=== PATIENT | male | born 1935 | race Caucasian/White ===

== ENCOUNTER 2023-10-13 12:25 | Outpatient (AMB) | payer MEDICARE, SELFPAY ==
--- OUTSIDE RECORDS SUMMARY | 2023-10-13 12:26 | XMS_ITS | Patient Health Record ---
Author Name Unknown [facility] Address [address] [place] [address] Care Team Providers Care Activities Therapist Name Role Phone Lashay Porter Primary Care Provider Fernie Maurer Unavailable [phone] ALLERGIES No Known Allergies REASON FOR REFERRAL No Information MEDICATIONS Medication SIG (Take, Route, Frequency, Duration) Notes Start Date End Date Status Famotidine Active Flomax Active HYDROcodone-Acetaminophen Active hydroCHLOROthiazide Active Omeprazole Active Magnesium Oxide Acti ve rOPINIRole HCl Activ e Atenolol 50 MG 1 tablet Orally Once a day for 30 day(s) Active Clopidogrel Bisulfate Not-Taking Acyclovir Not-Taking Aspirin Active Atorvastatin Calcium Active Potassium Chloride ER Not-Taking IMMUNIZATIONS Vaccine Route Administration Date Status Comme nts COVID-19 Pfizer BioNTech Vaccine Unknown 08/17/2021 Administered 1st 12/13/20 2nd 01/03/21 Influenza Unknown 08/09/2022 Administered SOCIAL HISTORY Tobacco Use: Social History Observation Description Date Details (start date - stop date) Former Smoker NA - NA Sex Assigned At : Social History Observation Description Sex Assigned At Unknown Tobacco Use/Smoking Question Answer Notes Are you a: former smoker Additional Findings: Tobacco Non-User Current no n-smoker Alcohol Screen Question Answer Notes Did you have a drink containing alcohol in the p ast year? No Points 0 Interpretation Negative Tobacco use other than smoking: Question Answer Notes Are you an other tobacco user? No PROBLEMS Problem Type ICD Code Onset Dates Problem Status W/U Status Risk SNOMED Code Notes Problem Atherosclerosis of [place] artery of both lower extremities, with unspecified presence of clinical manifestation (I70.203) Active confirmed [id number] VITAL SIGNS Blood pressure diastolic 80 mm Hg 08/25/2023 Height 5 ft 3 in in 08/25/2023 Blood pressure systolic 128 mm Hg 08/25/2023 Weight 168 lbs 08/25/2023 BMI 29.76 kg/m2 08/25/2023 PROCEDURES Procedure Date Ordered Date Performed Result Body Sit e 58444-XWVWYLN NAIL, 6 OR MORE 10/14/2022 N/A 30828-USJI SKIN LESIONS, 2 TO 4 10/14/2022 N/A 06600-RRXEDGX NAIL, 6 OR MORE 12/30/2022 N/A 47879-MTPV SKIN LESIONS, 2 TO 4 12/30/2022 N/A 88326-YHHZBVR NAIL, 6 OR MORE 03/24/2023 N/A 84906-FYYX SKIN LESIONS, 2 TO 4 03/24/2023 N/A 26578-AUHGLTK NAIL, 6 OR MORE 06/16/2023 N/A 34379-SDIP SKIN LESIONS, 2 TO 4 06/16/2023 N/A 06883-YVZNVIC NAIL, 6 OR MORE 08/25/2023 N/A 70026-ZGZD SKIN LESIONS, 2 TO 4 08/25/2023 N/A Encounters Encounter Location Date Provider Diagnosis [address] [address] 10/14/2022 Fernie Rice Atherosclerosis of [place] artery of both lower extremities, with unspecified presence of clinical manifestation I70.203 ; Tinea unguium B35.1 ; Pain in right toe(s) M79.674 and Pain in left toe(s) M79.[address] [address] 12/30/2022 Fernie Dwayne Atherosclerosis of y[place] artery of both lower extremities, with unspecified presence of clinical manifestation I70.203 ; Tinea unguium B35.1 ; Pain in right toe(s) M79.674 and Pain in left toe(s) M79.[address] [address] 03/24/2023 Fernie Dwayne Atherosclerosis of y[place] artery of both lower extremities, with unspecified presence of clinical manifestation I70.203 ; Tinea unguium B35.1 ; Pain in right toe(s) M79.674 and Pain in left toe(s) M79.[address] [address] 06/16/2023 Fernie Rice Atherosclerosis of y[place] artery of both lower extremities, with unspecified presence of clinical manifestation I70.203 ; Tinea unguium B35.1 ; Pain in right toe(s) M79.674 and Pain in left toe(s) M79.[address] [address] 08/25/2023 Fernie Kowalskiunier Atherosclerosis of yankton artery of both lower extremities, with unspecified presence of clinical manifestation I70.203 ; Tinea unguium B35.1 ; Pain in right toe(s) M79.674 and Pain in left toe(s) M79.675 ASSESSMENTS Encounter Date Diagnosis Assessment Notes Treatment Notes Treatment Clinical Notes 10/14/2022 Tinea unguium (ICD-1 0 - B35.1) 10/14/2022 Atherosclerosis of [place] artery of both lower extremities, with unspecified presence of clinical manifestation (ICD-10 - I70.203) 12/30/2022 Tinea unguium (ICD-1 0 - B35.1) 12/30/2022 Atherosclerosis of [place] artery of both lower extremities, with unspecified presence of clinical manifestation (ICD-10 - I70.203) 03/24/2023 Tinea unguium (ICD-1 0 - B35.1) 03/24/2023 Atherosclerosis of [place] artery of both lower extremities, with unspecified presence of clinical manifestation (ICD-10 - I70.203) 06/16/2023 Tinea unguium (ICD-1 0 - B35.1) 06/16/2023 Atherosclerosis of [place] artery of both lower extremities, with unspecified presence of clinical manifestation (ICD-10 - I70.203) 08/25/2023 Tinea unguium (ICD-1 0 - B35.1) 08/25/2023 Atherosclerosis of [place] artery of both lower extremities, with unspecified presence of clinical manifestation (ICD-10 - I70.203) 08/25/2023 Pain in right toe(s) (ICD-10 - M79.674) 03/24/2023 Pain in right toe(s) (ICD-10 - M79.674) 06/16/2023 Pain in right toe(s) (ICD-10 - M79.674) 10/14/2022 Pain in right toe(s) (ICD-10 - M79.674) 12/30/2022 Pain in right toe(s) (ICD-10 - M79.674) 10/14/2022 Pain in left toe(s) (ICD-10 - M79.675) 12/30/2022 Pain in left toe(s) (ICD-10 - M79.675) 06/16/2023 Pain in left toe(s) (ICD-10 - M79.675) 03/24/2023 Pain in left toe(s) (ICD-10 - M79.675) 08/25/2023 Pain in left toe(s) (ICD-10 - M79.675) PLAN OF TREATMENT Pending Test Test Name Order Date 16393-JFUKEZN NAIL, 6 OR MORE 08/09/2011 61110-XUHJVYJ NAIL, 6 OR MORE 11/15/2011 94934-BFMXNZV NAIL, 6 OR MORE 02/14/2012 76798-USTAVKN NAIL, 6 OR MORE 04/17/2012 76298-PJYENOE NAIL, 6 OR MORE 07/17/2012 05963-HSOPUJG NAIL, 6 OR MORE 09/25/2012 60847-OMTUDXX NAIL, 6 OR MORE 12/11/2012 93505-OMQGSSX NAIL, 6 OR MORE 03/15/2013 53425-MMGIHIA NAIL, 6 OR MORE 07/26/2013 84188-GYWNFTT NAIL, 6 OR MORE 01/31/2014 43968-OGMYJMF NAIL, 6 OR MORE 04/22/2014 18210-WPBUMLW NAIL, 6 OR MORE 07/25/2014 91017-FIXHIHD NAIL, 6 OR MORE 10/18/2013 00276-OQNLHQE NAIL, 6 OR MORE 10/24/2014 35904-JKECHPD NAIL, 6 OR MORE 01/23/2015 59069-NJZSJPW NAIL, 6 OR MORE 05/01/2015 57728-LKRYAJJ NAIL, 6 OR MORE 07/31/2015 26995-ZWWQAHA NAIL, 6 OR MORE 11/13/2015 44918-VTWYDOL NAIL, 6 OR MORE 02/12/2016 26566-NUXMJEO NAIL, 6 OR MORE 05/13/2016 79363-PFBMJMU NAIL, 6 OR MORE 07/26/2016 73037-WGYCFBU NAIL, 6 OR MORE 10/04/2016 06019-MRRDEQE NAIL, 6 OR MORE 12/13/2016 97283-NLXQBZR NAIL, 6 OR MORE 02/21/2017 57288-TELQPYU NAIL, 6 OR MORE 05/16/2017 23979-GCLLSWV NAIL, 6 OR MORE 07/18/2017 21898-JLKKDZB NAIL, 6 OR MORE 10/10/2017 21490-MBIMFAQ NAIL, 6 OR MORE 12/19/2017 66267-GIJWQAR NAIL, 6 OR MORE 02/23/2018 26284-ZJFCXUF NAIL, 6 OR MORE 04/27/2018 66065-BDTGGYX NAIL, 6 OR MORE 07/20/2018 42118-APMAFWS NAIL, 6 OR MORE 10/16/2018 09543-WKUVMTI NAIL, 6 OR MORE 05/24/2019 16553-ESSATET NAIL, 6 OR MORE 11/20/2020 59893-LRSQGDZ NAIL, 6 OR MORE 02/02/2021 83121-PKRBGAS NAIL, 6 OR MORE 04/13/2021 98857-FRURFEF NAIL, 6 OR MORE 06/22/2021 79286-WPYOIUC NAIL, 6 OR MORE 09/07/2021 42073-XPHZYBO NAIL, 6 OR MORE 01/28/2022 41314-MDAXALW NAIL, 6 OR MORE 05/17/2022 33219-FRNTNAH NAIL, 6 OR MORE 08/02/2022 08485-XMJHWRC NAIL, 6 OR MORE 10/14/2022 69274-QFHZNJV NAIL, 6 OR MORE 12/30/2022 27512-AQCWAGQ NAIL, 6 OR MORE 03/24/2023 46695-DUUIFVV NAIL, 6 OR MORE 06/16/2023 03854-YJMHAXI NAIL, 6 OR MORE 08/25/2023 24282-Tklkqtkn Plate 08/09/2011 25711-TZGV SKIN LESIONS, 2 TO 4 05/16/20 00976-PBEF SKIN LESIONS, 2 TO 4 07/18/20 17 69758-XFHU SKIN LESIONS, 2 TO 4 12/19/19 18 11273-JJVP SKIN LESIONS, 2 TO 4 10/10/20 17 79660-GMDG SKIN LESIONS, 2 TO 4 10/16/20 18 87710-TUOB SKIN LESIONS, 2 TO 4 07/20/20 18 99191-CAKV SKIN LESIONS, 2 TO 4 04/27/20 18 12227-WDOF SKIN LESIONS, 2 TO 4 02/24/20 18 44712-NDZY SKIN LESIONS, 2 TO 4 08/25/20 23 36902-VFSP SKIN LESIONS, 2 TO 4 06/16/20 23 77494-DHAL SKIN LESIONS, 2 TO 4 03/24/20 23 55181-LPZD SKIN LESIONS, 2 TO 4 12/30/19 23 12951-XCEK SKIN LESIONS, 2 TO 4 10/14/20 22 88202-ZFIY SKIN LESIONS, 2 TO 4 08/02/20 22 25783-PEQG SKIN LESIONS, 2 TO 4 05/17/20 38508-LCHY SKIN LESIONS, 2 TO 4 01/29/20 22 91879-UOON SKIN LESIONS, 2 TO 4 09/07/20 21 30534-KUPC SKIN LESIONS, 2 TO 4 06/22/20 21 42272-IIXY SKIN LESIONS, 2 TO 4 04/13/20 21 61151-LQFF SKIN LESIONS, 2 TO 4 02/03/20 21 04112-RLER SKIN LESIONS, 2 TO 4 11/20/19 21 59243-RYJU SKIN LESIONS, 2 TO 4 05/24/20 19 17018-MIGJ SKIN LESION 02/21/2017 Next Appt Details Provider Name:Fernie Rice , 11/10/2023 12:45:00 PM, [address] [place], [address], Insurance Providers Payer Name Payer Address Payer Phone Subscriber Number Group Number Insured Name Patient Relationship to Insured Coverage Start Date Coverage End Date Medicare National [employer] [address] [place] [address] [id number] Gray Bunn Self - patient is the insured 1 [employer] [facility] [address] [place] [address] [phone] [id number] Timi richard Gray Self - patient is the insured MEDICAL (GENERAL) HISTORY Medical History History ICD Code hypertension reflux CVA OA knees Back Melanoma Surgical History Surgery Date(Month/Year) lung surgery 1982 right shoulder surgery 2003 left shoulder surgery 2005 cataract removal both eyes 04/2015 knee surgery, left 11/28/17 Hospitalization History Reason Date(Month/Year) Patient went to [facility] ER after a fall of f the ladder. 09/2015 [facility]- 09/07 stay Blood flow issue in legs 07/2021 [facility] - legs red, brief stay [facility]- Fell diarrhea/ vomiting at sametime due to dehydration test done sameday stay 2021
--- NOTE | 2023-10-13 13:48 | AM.OFFWIN_ITS ---
Intake Vital Signs 3 10/13/23 13:49 Weight 74.843 kg BP 130/60 Blood Pressure Location Lt brachial Position Sitting Pulse 70 Pulse Source Pulse Oximeter Temp 97.2 F Temp Source Temporal Artery Scan Pulse Oximetry (%) 97 Oxygen Delivery Method Room Air Intake Visit Reasons: EST/left leg infection (lobby) Intake Note: pt is here today for possible lft leg infection started 3 days ago Patient Tobacco Use Status: Never used Tobacco Allergies No Known Allergies [No Known Allergies*] Allergy (Verified 10/13/23 13:54) Do you need a note to return to daycare/school/sports/work: No HPI HPI Comments 2 History of Present Illness0 Details 1403 This is an 88-year-old male presenting for evaluation of rash to left lower extremity, he reports this rash happens from time to time and he needs antibiotics, reports poor circulation to bilateral lower extremities. Left lower extremity is very painful and now somewhat cold. He denies fevers, chills, tingling, chest pain, shortness of breath, nausea, vomiting, joint pain. Physical exam significant for erythematous area up to the knee with overlying coldness to the left lower extremity anterior aspect appears shiny, tenderness overlying. 2+ dorsalis pedis, anterior tibialis pulses to RLE no palpable DP,AT,PT to LLE. Decreased sensation to left lower extremity. Tenderness to palpation to left lower extremity from the knee down. This patient was also evaluated by Dr. Munroe was also unable to palpate pulses to left lower extremity This is likely arterial occlusion versus DVT versus cellulitis. No signs of necrotizing infection, threat to limb Patient will have emergent transfer to [facility]'s Emergency Department and be seen there to rule out arterial occlusion. Expect called in to Dr. Richards [facility] Social History Patient Tobacco Use Status: Never used Tobacco Review of Systems Const Details: Constitutional : No Weight loss, No Fever, No Chills, No Fatigue, No Malaise ENT/Mouth : No sore throat, No Rhinorrhea Eyes: No Eye Pain, No Swelling, No Redness Cardiovascular : No Chest Pain, No SOB, No Dyspnea on Exertion, No Orthopnea, No Edema, No Palpitations Respiratory : No Cough, No Sputum, No Wheezing Gastrointestinal : No Nausea, No Vomiting, No Diarrhea, No Constipation, No abdominal Pain, No Hematochezia, No Melena Genitourinary : No Dysuria, No Urinary Frequency, No Hematuria, Musculoskeletal : No joint pain, No Myalgias, No Joint Swelling Skin : No Skin Lesions, + rash Neuro : No Weakness, No Numbness, No Dizziness, No Headache Psych : No Anxiety/Panic, No Depression All other systems reviewed and are negative All systems reviewed & are unremarkable except as noted in HPI and below Physical Exam Vital Signs: Last Vital Signs Temp 97.2 F 10/13/23 13:49 Pulse 70 10/13/23 13:49 BP 130/60 10/13/23 13:49 Pulse Ox 97 10/13/23 13:49 Oxygen Delivery Method Room Air 10/13/23 13:49 Vital signs stable Appearance: Alert.? Oriented X3.? No acute distress.? Head: Normocephalic, atraumatic, no step-offs or deformities Eyes: Pupils equal, round and reactive to light.? Neck: Normal inspection.? Neck supple.? CVS: Normal heart rate and rhythm.? Pulses normal.? Respiratory: No respiratory distress.? Breath sounds normal.? Abdomen: Soft and nontender.? Skin: erythematous area up to the knee with overlying coldness to the left lower extremity anterior aspect appears shiny, tenderness overlying. 2+ dorsalis pedis, anterior tibialis pulses to RLE no palpable DP,AT,PT to LLE. Decreased sensation to left lower extremity. Tenderness to palpation to left lower extremity from the knee down. Extremities: No lower extremity edema.? 5/5 strength to bilateral upper and lower extremities Neuro: Oriented X 3.? No motor deficit.? No sensory deficit. CN 2-12 intact Assessment & Plan Assessment & Plan (1) Acute pain of left lower extremity: Code(s): M79.605 - Pain in left leg Plan Patient will go with daughter to [facility] ED Coding Level of Care Code Est Pt Level 4 (35643) Diagnoses Acute pain of left lower extremity M79.605
[2023-10-13 13:49] VITALS: BP 130/60; PULSE 70; TEMP 36.2; O2SAT 97
== END 2023-10-13 15:38 | disposition home or self-care (01) ==
PROVIDERS: PCP Internal Medicine; Visit Provider Physician Assistant
DX: M79.605 Pain in left leg (principal)
CPT/HCPCS: 99214

== ENCOUNTER 2023-10-13 14:55 | Emergency (ER) | payer MEDICARE, SELFPAY ==
--- NOTE | ~2023-10-13 | US_ITS ---
EXAMINATION: US-left LOW EXTR ARTERIAL DOP CLINICAL INFORMATION: Pain COMPARISON: None TECHNIQUE: Real-time ultrasound and Doppler techniques (integrating B-mode 2-D vascular images, Doppler spectral analysis and color flow Doppler imaging) were utilized to interrogate the left lower extremity FINDINGS: Left lower extremity: Common femoral artery: 200 cm/sec; biphasic waveform Superficial femoral artery proximal: 146 cm/sec; biphasic waveform Superficial femoral artery mid portion: 78 cm/sec; biphasic waveform Superficial femoral artery distal: 53 cm/sec; biphasic waveform Profunda artery: 176 cm/sec; biphasic waveform Popliteal artery: 55 cm/sec; biphasic waveform Posterior tibial artery: 135 cm/sec; biphasic waveform US/US arterial duplex LE LT IMPRESSION: Mild atherosclerotic disease. No evidence of a hemodynamically significant stenosis in the left common femoral artery, superficial femoral artery, popliteal artery and posterior tibial artery by waveform and velocity criteria. There is flow reversal in the anterior tibial artery and dorsalis pedis which may suggest collateral flow to these vessels.
[2023-10-13 15:05] VITALS: BP 207/75; PULSE 60; RESP 16; TEMP 37.1; O2SAT 98; BMI 29.2
--- NOTE | 2023-10-13 15:05 | ED.GENADULT ---
HPI - General Adult General Chief complaint: Extremity Injury, Lower Stated complaint: needs Ultrasound Time Seen by Provider: 10/13/23 15:23 History of Present Illness HPI narrative: 88 y/o M patient; PMH HTN, HLD, GERD, BPH, recurrent lower extremity cellulitis; presents as referral from Urgent Care for left lower extremity ultrasound. The patient reports three days of left leg redness, pain, and swelling. He states his last course of antibiotics was Keflex approx 3 - 4 weeks ago. He otherwise denies: fever or chills, nausea or vomiting, abdominal pain, chest pain, cough, SOB. Patient has been ambulatory despite the discomfort. He is a non-smoker. Related Data Home Medications Medication Instructions Recorded Confirmed aspirin 81 mg tablet,delayed 81 mg PO DAILY 05/10/22 release (Adult Low Dose Aspirin) atenolol 25 mg tablet 25 mg PO DAILY 05/10/22 atorvastatin 40 mg tablet 40 mg PO BEDTIME 05/10/22 gabapentin 100 mg capsule 0 mg PO 05/10/22 ipratropium 0.5 mg-albuterol 3 mg 3 ml inhalation QID PRN 05/10/22 (2.5 mg base)/3 mL nebulization soln lisinopril 10 mg tablet 10 mg PO DAILY 05/10/22 omeprazole 20 mg capsule,delayed 20 mg PO DAILY 05/10/22 release tamsulosin 0.4 mg capsule 0.8 mg PO DAILY 05/10/22 vit C 250 mg-vit E 200 unit-zinc 1 cap PO BID 05/10/22 ox 12.5 gf-dzoije-wkcuty-zeax capsule (ICaps AREDS2) Previous Rx's Medication Instructions Recorded cephalexin 500 mg capsule 500 mg PO TID #30 caps 05/10/22 cefuroxime axetil 500 mg tablet 500 mg PO BID 7 days #14 tabs 10/13/23 Allergies Allergy/AdvReac Type Severity Reaction Status Date / Time No Known Allergies Allergy Verified 10/13/23 13:54 [No Known Allergies*] Review of Systems Review of Systems: Yes all other systems are reviewed and are negative [facility] Past Medical History Attestation statement: The following information was validated with the patient. Source: old records reviewed Social History Social History Patient Tobacco Use Status: Never used Tobacco Smoked in Last 30 Days: No Use of substances other than those prescribed or required for medical reasons: No Advance Directives: Yes Advance Directives on File: No Physical Exam ED Vital Signs: Vital Signs - 24 hr 10/13/23 15:05 10/13/23 15:52 Temperature 98.7 F 98 F Pulse Rate 60 57 Respiratory Rate 16 17 Blood Pressure 207/75 H 194/66 H Pulse Oximetry 98 97 Oxygen Delivery Method Room Air Room Air BMI result Body Mass Index 29.2 The patient is afebrile, hemodynamically stable with high blood pressure. Const General: cooperative Orientation/consciousness: patient oriented x3 HENMT Head: Yes normal to inspection and Yes atraumatic Eyes General: appearance normal, both eyes and all related structures Pupils: Equal, round and reactive pupils present EOM: EOMs intact bilaterally Neck Neck: Yes full ROM and Yes supple Chest Chest palpation & inspection: normal inspection of the chest and normal palpation of entire chest wall Resp Effort & Inspection: normal respiratory effort and no respiratory distress Auscultation: clear to auscultation bilaterally Cardio Rate: regular rate Rhythm: regular rhythm GI Inspection: No distended Palpation (GI): Soft to palpation, not firm, nontender, no guarding and not rigid Auscultation: normal bowel sounds Skin Other: LLE: Mild erythema to anterolateral aspect, mild edema, mild warmth. [place]-phasic doppler DP appreciated. RLE: Unremarkable Neuro General: patient oriented x3 Cranial nerves: Yes Equal, round and reactive pupils present Course Course Course Narrative: RME- 88-year-old male presents for evaluation of left leg pain for the last few days. He was sent from urgent care to rule out arterial occlusion of the left lower extremity. Urgent care staff was unable to palpate pulses to left lower extremity [id number]. I am also unable to palpate posterior tibialis pulse. Plan for labs, arterial ultrasound Reevaluation(s) Reevaluation #1: Reviewed triage plan as above. Low suspicion for acute arterial occlusion due to ability to doppler DP and PT pulses in LLE. Will await read of arterial US. Laboratory studies reviewed. No leukocytosis. Remainder of labs unremarkable. Time: 16:43 Reevaluation #2: US arterial reviewed. No abnormal flow appreciated. Patient's LLE cellulitis treated with Cefuroxime as it is not purulent in nature. Provided first dose in the ED. Plan: Discharge to home with PCP follow up Return precautions given Time: 19:10 Medical Decision Making Lab Data 10/13/23 15:17 10/13/23 15:17 Labs: Lab Results 10/13/23 Range/Units 15:17 WBC 10.4 (4.8-10.8) X10*3/uL RBC 5.38 (4.60-5.80) X10*6/uL Hgb 15.9 (14.0-18.0) g/dl Hct 48.7 (42.0-52.0) % MCV 90.5 (80.0-98.0) fL MCH 29.6 (27.0-33.0) pg MCHC 32.6 (31.0-36.0) g/dl RDW 14.3 (11.0-16.0) % Plt Count 147 L (160-400) X10*3/uL MPV 9.4 (9.4-12.4) fL Immature Gran % (Auto) 0.5 H (0.0-0.4) % Neut % (Auto) 75.1 H (45-73) % Lymph % (Auto) 16.4 L (20-40) % [place] % (Auto) 6.9 (2-11) % Eos % (Auto) 0.7 (0-4) % Baso % (Auto) 0.4 (0-2) % Lymph # (Auto) 1.7 (1.2-4.9) X10*3/uL [place] # (Auto) 0.7 (0.1-1.2) X10*3/uL Eos # (Auto) 0.1 (0.0-0.4) X10*3/uL Baso # (Auto) 0.0 (0.0-0.2) X10*3/uL Abs Immat Gran (auto) 0.05 H (0.00-0.03) X10*3/uL Absolute Neuts (auto) 7.8 (2.0-8.3) x10*3/uL Absolute Nucleated RBC 0.000 (0.0-0.012) X10*3/uL Nucleated RBC % (auto) 0.0 (0.0-0.2) /100WBC PT 11.2 (11.1-13.3) SEC INR 0.9 (0.9-1.1) APTT 28.4 (26.0-36.4) SEC Sodium 144 (135-145) mmol/L Potassium 4.4 (3.3-5.1) mmol/L Chloride 108 (96-108) mmol/L Carbon Dioxide 31 H (22-29) mmol/L Anion Gap 9 L (12-20) BUN 18 H (9-16) mg/dL Creatinine 0.90 (0.5-1.4) mg/dL Estim Creat Clear Calc 52.4 Estimated GFR > 60 Random Glucose 97 (60-115) mg/dL Calcium 9.2 (8.4-10.2) mg/dL Total Bilirubin 0.7 (0.0-1.0) mg/dL AST 29 (5-37) U/L ALT 40 (0-40) U/L Alkaline Phosphatase 101 (39-117) U/L Total Protein 7.2 (6.5-8.0) g/dL Albumin 4.1 (3.5-5.0) g/dL Lipase 28 (8-78) U/L Radiology Impression Discussion of test interpretation with radiology: I have reviewed the radiologist's reading. Radiologist Impression: EXAMINATION: US-left LOW EXTR ARTERIAL DOP CLINICAL INFORMATION: Pain COMPARISON: None TECHNIQUE: Real-time ultrasound and Doppler techniques (integrating B-mode 2-D vascular images, Doppler spectral analysis and color flow Doppler imaging) were utilized to interrogate the left lower extremity FINDINGS: Left lower extremity: Common femoral artery: 200 cm/sec; biphasic waveform Superficial femoral artery proximal: 146 cm/sec; biphasic waveform Superficial femoral artery mid portion: 78 cm/sec; biphasic waveform Superficial femoral artery distal: 53 cm/sec; biphasic waveform Profunda artery: 176 cm/sec; biphasic waveform Popliteal artery: 55 cm/sec; biphasic waveform Posterior tibial artery: 135 cm/sec; biphasic waveform US/US arterial duplex LE IMPRESSION: Mild atherosclerotic disease. No evidence of a hemodynamically significant stenosis in the left common femoral artery, superficial femoral artery, popliteal artery and posterior tibial artery by waveform and velocity criteria. There is flow reversal in the anterior tibial artery and dorsalis pedis which may suggest collateral flow to these vessels. Discharge Plan Discharge Clinical Impression: Cellulitis of left leg Patient Disposition: Home, Self-Care Instructions: Cellulitis (DC) Additional Instructions: As we discussed, you were seen for an infection in your left leg called cellulitis. You US did not show any problem with your arteries. You are being treated with an antibiotic twice a day for 7 days. Please follow up with your PCP regarding re-evaluation and for a referral to a vascular physician. Return to the ED for fever, worsening pain, passing out. Prescriptions: New cefuroxime axetil 500 mg tablet 500 mg PO BID 7 Days Qty: 14 0RF No Action aspirin [Adult Low Dose Aspirin] 81 mg tablet,delayed release (DR/EC) 81 mg PO DAILY atenolol 25 mg tablet 25 mg PO DAILY atorvastatin 40 mg tablet 40 mg PO BEDTIME gabapentin 100 mg capsule 0 mg PO lisinopril 10 mg tablet 10 mg PO DAILY omeprazole 20 mg capsule,delayed release(DR/EC) 20 mg PO DAILY tamsulosin 0.4 mg capsule 0.8 mg PO DAILY ICaps AREDS2 250 mg-200 unit -12.5 mg-1 mg capsule 1 cap PO BID ipratropium-albuterol 0.5 mg-3 mg(2.5 mg base)/3 mL solution for nebulization 3 ml inhalation QID PRN cephalexin 500 mg capsule 500 mg PO TID Qty: 30 0RF
[2023-10-13 15:23] LABS: MANUAL DIFF FLAG NO
[2023-10-13 15:27] LABS: Basophils Percent Auto 0.4 % (0-2); Eosinophils Absolute Auto 0.1 X10*3/uL (0.0-0.4); Eosinophils Percent Auto 0.7 % (0-4); Hematocrit 48.7 % (42.0-52.0); Hemoglobin 15.9 g/dl (14.0-18.0); Imm Gran Abs Auto 0.05 X10*3/uL (0.00-0.03); Imm Gran Pct Auto 0.5 % (0.0-0.4); Lymphocytes Absolute Auto 1.7 X10*3/uL (1.2-4.9); Lymphocytes Percent Auto 16.4 % (20-40); Mean Corpuscular HGB Conc 32.6 g/dl (31.0-36.0); Mean Corpuscular Hemoglobin 29.6 pg (27.0-33.0); Mean Corpuscular Volume 90.5 fL (80.0-98.0); Mean Platelet Volume 9.4 fL (9.4-12.4); Monocytes Absolute Auto 0.7 X10*3/uL (0.1-1.2); Monocytes Percent Auto 6.9 % (2-11); Neutrophils Absolute Auto 7.8 x10*3/uL (2.0-8.3); Neutrophils Percent Auto 75.1 % (45-73); Platelet Count 147 X10*3/uL (160-400); Red Blood Count 5.38 X10*6/uL (4.60-5.80); Red Cell Distribution Width 14.3 % (11.0-16.0); White Blood Count 10.4 X10*3/uL (4.8-10.8)
[2023-10-13 15:34] LABS: INTERNATIONAL NORM RATIO 0.9 (0.9-1.1); Prothrombin Time 11.2 SEC (11.1-13.3)
[2023-10-13 15:37] LABS: Partial Thromboplastin Time 28.4 SEC (26.0-36.4)
[2023-10-13 15:46] LABS: Alanine Aminotransferase 40 U/L (0-40); Albumin Level 4.1 g/dL (3.5-5.0); Alkaline Phosphatase 101 U/L (39-117); Anion Gap 9 (12-20); Aspartate Amino Transferase 29 U/L (5-37); Bilirubin Total 0.7 mg/dL (0.0-1.0); Blood Urea Nitrogen 18 mg/dL (9-16); Calcium 9.2 mg/dL (8.4-10.2); Carbon Dioxide 31 mmol/L (22-29); Chloride 108 mmol/L (96-108); Creatinine Clr Calc Pharmacy 52.4; Estimated Glomerular Filt Rate > 60; Glucose Random 97 mg/dL (60-115); Lipase 28 U/L (8-78); Potassium 4.4 mmol/L (3.3-5.1); Sodium 144 mmol/L (135-145); Total Protein 7.2 g/dL (6.5-8.0)
[2023-10-13 15:52] VITALS: BP 194/66; PULSE 57; RESP 17; TEMP 36.6; O2SAT 97
--- NOTE | 2023-10-13 18:13 | PC.NURSE ---
delay in getting the U/s reading, u/s tech and weld technician have reached out x 2 and they state that the Radiologist is aware and they are working on it
[2023-10-13] MEDS: cefuroxime axetiL 500 MG TABLET PO (19:35)
[2023-10-13 19:37] VITALS: PULSE 71; RESP 16; O2SAT 98
== END 2023-10-13 19:43 | disposition home or self-care (01) ==
PROVIDERS: Physician Assistant; Emergency Provider Emergency Medicine
DX: L03.116 Cellulitis of left lower limb (principal); M79.605 Pain in left leg; R60.0 Localized edema; Z79.899 Other long term (current) drug therapy
CPT/HCPCS: 36415; 80053; 83690; 85025; 85610; 85730; 93926; 99284

== ENCOUNTER 2023-11-03 13:49 | Outpatient (AMB) | payer MEDICARE, SELFPAY ==
[2023-11-03 13:49] VITALS: BP 150/70; PULSE 96; TEMP 36.1; O2SAT 98; BMI 29.6
--- NOTE | 2023-11-03 13:49 | AM.OFFWIN_ITS ---
Intake Vital Signs 11/03/23 13:49 Height 5 ft 3 in Weight 167 lb BMI 29.6 BP 150/70 H Blood Pressure Location Lt brachial Position Sitting Pulse 96 Pulse Source Pulse Oximeter Temp 97.0 F Temp Source Temporal Artery Scan Pulse Oximetry (%) 98 Oxygen Delivery Method Room Air Intake Visit Reasons: EST/left leg swelling(lobby) Intake Note: pt is here today for lft swelling started 3 weeks ago Patient Tobacco Use Status: Never used Tobacco Allergies No Known Allergies [No Known Allergies*] Allergy (Verified 11/03/23 13:49) Do you need a note to return to daycare/school/sports/work: No HPI HPI Comments History of Present Illness Details He presents to office with L leg swelling Symptoms onset yesterday +redness/swelling He said he gets cellulitis to leg almost ever 3 weeks He went to the ED last time for this 05/10 and 10/13 was seen here for same thin g. Improves with antibiotics november 23 he is seeing vascular specialist. No numbness, tingling, weakness, fever, chills, CP, SOB PFSH Social History Patient Tobacco Use Status: Never used Tobacco Review of Systems Const Denies chills, Denies fatigue and Denies fever(s) ENT Denies nasal congestion Card Denies chest pain, Denies rapid heart rate, Reports leg edema and Denies dyspnea Resp Denies chest congestion, Denies cough, Denies hemoptysis and Denies dyspnea Skin/Breast Reports erythema Endo Denies fatigue Physical Exam Vital Signs: Last Vital Signs Temp 97.0 F 11/03/23 13:49 Pulse 96 11/03/23 13:49 BP 150/70 H 11/03/23 13:49 Pulse Ox 98 11/03/23 13:49 Oxygen Delivery Method Room Air 11/03/23 13:49 BMI result Body Mass Index 29.6 General: Non-toxic, NAD. Speaking full sentences. Skin: Warm dry throughout. LLE- +edema and erythema extending from medial proximal tibia inferiorly to dorsal aspect foot. No discharge. +slight warm to palpation. No eschar or pallor Respiratory: No tachypnea Cardiac: faint DP palpable. No LLE calf tenderness MSK: No tenderness to palpation digits L foot or metatarsal bones Neurology: A/O. No aphasia or facial droop. Gait without abnormality with cane Psych: Good mood and affect Assessment & Plan Assessment & Plan (1) Cellulitis of left leg: Code(s): L03.116 - Cellulitis of left lower limb Plan: Patient seen and evaluated. He has had this 2 times before. + tx in summer with cefalexin. Last visit went to ER with neg work up and d/c on cephalosporin Per pt usually improved in 24-48 hours with antibiotics Keflex to pharmacy with food. Discussed ER S/S to go directly down there if not improved or new/worsening symptoms Patient gave verbal understanding and had no additional questions or concerns at time of discharge All questions answered Medications: New cephalexin 500 mg PO TID 14 caps 0RF L03.116 - Cellulitis of left lower limb Coding Level of Care Code Est Pt Level 3 (51697) Diagnoses Cellulitis of left leg L03.116
--- OUTSIDE RECORDS SUMMARY | 2023-11-03 13:51 | XMS_ITS | Patient Health Record ---
Author Name Unknown [facility] Address [address] [place] [address] Care Team Providers Care Concrete Rod Buster Name Role Phone Lashay Porter Primary Care Provider Fernie Maurer Unavailable [phone] ALLERGIES No Known Allergies REASON FOR REFERRAL [...] Risk SNOMED Code Notes Problem Atherosclerosis of [place] artery of both lower extremities, with unspecified presence of clinical manifestation (I70.203) Active confirmed [id number] VITAL SIGNS Blood pressure diastolic 80 mm Hg 08/25/2023 Height 5 ft 3 in in 08/25/2023 Blood pressure systolic 128 mm Hg 08/25/2023 Weight 168 lbs 08/25/2023 BMI 29.76 kg/m2 08/25/2023 PROCEDURES Procedure Date Ordered Date Performed Result Body Sit e 45853-FYKHFLO NAIL, 6 OR MORE 12/30/2022 N/A 86548-OHOA SKIN LESIONS, 2 TO 4 12/30/2022 N/A 09406-DMAULCK NAIL, 6 OR MORE 03/24/2023 N/A 10679-WTOW SKIN LESIONS, 2 TO 4 03/24/2023 N/A 23968-DSQXLUL NAIL, 6 OR MORE 06/16/2023 N/A 31813-YRSG SKIN LESIONS, 2 TO 4 06/16/2023 N/A 53476-FLSMKNS NAIL, 6 OR MORE 08/25/2023 N/A 43635-JDHR SKIN LESIONS, 2 TO 4 08/25/2023 N/A Encounters Encounter Location Date Provider Diagnosis [address] [address] 12/30/2022 Fernie Rice Atherosclerosis of [place] artery of both lower extremities, with unspecified presence of clinical manifestation I70.203 ; Tinea unguium B35.1 ; Pain in right toe(s) M79.674 and Pain in left toe(s) M79.[address] [address] 03/24/2023 Fernie Rice Atherosclerosis of [place] artery of both lower extremities, with unspecified presence of clinical manifestation I70.203 ; Tinea unguium B35.1 ; Pain in right toe(s) M79.674 and Pain in left toe(s) M79.[address] [address] 06/16/2023 Fernie Rice Atherosclerosis of [place] artery of both lower extremities, with unspecified presence of clinical manifestation I70.203 ; Tinea unguium B35.1 ; Pain in right toe(s) M79.674 and Pain in left toe(s) M79.675 [facility] [address] [place] [address] 08/25/2023 Fernie Rice Atherosclerosis of [place] artery of both lower extremities, with unspecified presence of clinical manifestation I70.203 ; Tinea unguium B35.1 ; Pain in right toe(s) M79.674 and Pain in left toe(s) M79.675 ASSESSMENTS Encounter Date Diagnosis Assessment Notes Treatment Notes Treatment Clinical Notes 12/30/2022 Tinea unguium (ICD-1 0 - B35.1) 12/30/2022 Atherosclerosis of [place] artery of both lower extremities, with unspecified presence of clinical manifestation (ICD-10 - I70.203) 03/24/2023 Tinea unguium (ICD-1 0 - B35.1) 03/24/2023 Atherosclerosis of [place] artery of both lower extremities, with unspecified presence of clinical manifestation (ICD-10 - I70.203) 06/16/2023 Tinea unguium (ICD-1 0 - B35.1) 06/16/2023 Atherosclerosis of [place] artery of both lower extremities, with unspecified presence of clinical manifestation (ICD-10 - I70.203) 08/25/2023 Tinea unguium (ICD-1 0 - B35.1) 08/25/2023 Atherosclerosis of [place] artery of both lower extremities, with unspecified presence of clinical manifestation (ICD-10 - I70.203) 08/25/2023 Pain in right toe(s) (ICD-10 - M79.674) 03/24/2023 Pain in right toe(s) (ICD-10 - M79.674) 06/16/2023 Pain in right toe(s) (ICD-10 - M79.674) 12/30/2022 Pain in right toe(s) (ICD-10 - M79.674) 12/30/2022 Pain in left toe(s) (ICD-10 - M79.675) 06/16/2023 Pain in left toe(s) (ICD-10 - M79.675) 03/24/2023 Pain in left toe(s) (ICD-10 - M79.675) 08/25/2023 Pain in left toe(s) (ICD-10 - M79.675) PLAN OF TREATMENT Pending Test Test Name Order Date 98564-SLCMNCM NAIL, 6 OR MORE 08/09/2011 93433-FXLVYLU NAIL, 6 OR MORE 11/15/2011 67362-TCFGPWR NAIL, 6 OR MORE 02/14/2012 95199-MEVYJYS NAIL, 6 OR MORE 04/17/2012 62370-GCZXMAD NAIL, 6 OR MORE 07/17/2012 07642-JSWLGWC NAIL, 6 OR MORE 09/25/2012 04940-DHQBPJC NAIL, 6 OR MORE 12/11/2012 24071-NVRAHKH NAIL, 6 OR MORE 03/15/2013 85208-WPCGQPJ NAIL, 6 OR MORE 07/26/2013 09019-GVPPLFS NAIL, 6 OR MORE 01/31/2014 55698-ASZVESX NAIL, 6 OR MORE 04/22/2014 34871-NODXVVA NAIL, 6 OR MORE 07/25/2014 51696-PQKOFWD NAIL, 6 OR MORE 10/18/2013 86196-XHPVKXH NAIL, 6 OR MORE 10/24/2014 72191-IOZWKLN NAIL, 6 OR MORE 01/23/2015 67203-CKZZTXI NAIL, 6 OR MORE 05/01/2015 36485-GQRKLDV NAIL, 6 OR MORE 07/31/2015 31084-UPYYYFH NAIL, 6 OR MORE 11/13/2015 45685-VKPOHNA NAIL, 6 OR MORE 02/12/2016 82822-AWNBCMY NAIL, 6 OR MORE 05/13/2016 84926-XOFYXDU NAIL, 6 OR MORE 07/26/2016 59087-TJHSYYN NAIL, 6 OR MORE 10/04/2016 73656-QIXWKTJ NAIL, 6 OR MORE 12/13/2016 68595-OYYASKM NAIL, 6 OR MORE 02/21/2017 13611-OYDQGEB NAIL, 6 OR MORE 05/16/2017 86003-HJLXEQY NAIL, 6 OR MORE 07/18/2017 51557-EULCKIJ NAIL, 6 OR MORE 10/10/2017 12291-MGVIPIS NAIL, 6 OR MORE 12/19/2017 07229-UDTEEAZ NAIL, 6 OR MORE 02/23/2018 31910-STVIYRC NAIL, 6 OR MORE 04/27/2018 05472-NTBXUYB NAIL, 6 OR MORE 07/20/2018 92555-QADABDS NAIL, 6 OR MORE 10/16/2018 28733-ZYLATJQ NAIL, 6 OR MORE 05/24/2019 77148-ITICHLN NAIL, 6 OR MORE 11/20/2020 11706-AKZRLHH NAIL, 6 OR MORE 02/02/2021 75407-ZQLHTBA NAIL, 6 OR MORE 04/13/2021 58452-UMAUNIC NAIL, 6 OR MORE 06/22/2021 97069-UHNSWCI NAIL, 6 OR MORE 09/07/2021 44535-UMVXXIE NAIL, 6 OR MORE 01/28/2022 60503-NBTPYLF NAIL, 6 OR MORE 05/17/2022 79259-ZMGMMDE NAIL, 6 OR MORE 08/02/2022 51077-QDRPIPI NAIL, 6 OR MORE 10/14/2022 60809-QAOQBEL NAIL, 6 OR MORE 12/30/2022 25914-MKDTVMM NAIL, 6 OR MORE 03/24/2023 50861-RAYOBNX NAIL, 6 OR MORE 06/16/2023 36215-VKLONEL NAIL, 6 OR MORE 08/25/2023 25533-Xvfzlkbn Plate 08/09/2011 95261-RBBQ SKIN LESIONS, 2 TO 4 05/16/20 17 69991-QQUZ SKIN LESIONS, 2 TO 4 07/18/20 89496-ANYL SKIN LESIONS, 2 TO 4 12/19/19 18 74040-LHIV SKIN LESIONS, 2 TO 4 10/10/20 17 14835-ZRPK SKIN LESIONS, 2 TO 4 10/16/20 18 19393-ABEH SKIN LESIONS, 2 TO 4 07/20/20 18 86523-WAST SKIN LESIONS, 2 TO 4 04/27/20 18 56927-PIDL SKIN LESIONS, 2 TO 4 02/24/20 18 17032-VNNO SKIN LESIONS, 2 TO 4 08/25/20 23 50919-FHSD SKIN LESIONS, 2 TO 4 06/16/20 41497-JAZU SKIN LESIONS, 2 TO 4 03/24/20 69390-TUPR SKIN LESIONS, 2 TO 4 12/30/19 23 48887-ELKG SKIN LESIONS, 2 TO 4 10/14/20 89761-FDOI SKIN LESIONS, 2 TO 4 08/02/20 61271-JVRU SKIN LESIONS, 2 TO 4 05/17/20 22798-WFIZ SKIN LESIONS, 2 TO 4 03/25/20 22 37366-DTHT SKIN LESIONS, 2 TO 4 09/07/20 21 08276-SAZP SKIN LESIONS, 2 TO 4 06/22/20 21 59133-PYEZ SKIN LESIONS, 2 TO 4 04/13/20 21 18910-JLRC SKIN LESIONS, 2 TO 4 02/03/20 21 28607-TGMX SKIN LESIONS, 2 TO 4 11/20/19 21 34652-KHFO SKIN LESIONS, 2 TO 4 05/24/20 19 01958-ZIIY SKIN LESION 02/21/2017 Next Appt Details Provider Name:Fernie Rice , 11/10/2023 12:45:00 PM, [address] [facility], [place], [address], Insurance Providers Payer Name Payer Address Payer Phone Subscriber Number Group Number Insured Name Patient Relationship to Insured Coverage Start Date Coverage End Date Medicare National [facility] [employer] [address] [facility] [place] [address] [id number] Gray Bunn Self - patient is the insured 1 [employer] [address] [place] [address] [id number] Gray Bunn Self - patient is the insured MEDICAL (GENERAL) HISTORY Medical History History ICD Code hypertension reflux CVA OA knees Back Melanoma Surgical History Surgery Date(Month/Year) lung surgery 1982 right shoulder surgery 2003 left shoulder surgery 2005 cataract removal both eyes 04/2015 knee surgery, left 11/28/17 Hospitalization History Reason Date(Month/Year) Patient went to [facility] after a fall of f the ladder. 09/2015 [facility]- 09/07 stay Blood flow issue in legs 07/2021 [facility] - legs red, brief stay [facility]- Fell diarrhea/ vomiting at sametime due to dehydration test done sameday stay 2021
== END 2023-11-03 14:06 | disposition home or self-care (01) ==
PROVIDERS: Visit Provider Physician Assistant
DX: L03.116 Cellulitis of left lower limb (principal)
CPT/HCPCS: 99213